=== PATIENT | female | born 1975 | race Caucasian/White ===

== ENCOUNTER 2020-06-27 19:35 | Emergency (ER) | payer BC ==
[~2020-06-27] VITALS: Ht 165.1 cm; Wt 62.6 kg
[~2020-06-27 19:35] MED LIST: HYDR200T81 PO; SERT100T PO
[2020-06-27 20:21] VITALS: BP 119/73
--- NOTE | 2020-06-27 20:28 | NUR ---
PRESENTED TO THE ER FOR C/O HEMATURIA AND DYSURIA X 3 HRS. NO C/O PAIN OR DUSCOMFORT, VSS. AFEBRILE. WILL CONT TO MONITOR ,
--- NOTE | 2020-06-27 20:36 | NUR ---
urine sent to lab
[2020-06-27 20:42] LABS: BILIRUBIN,URINE Negative (NEGATIVE); COLOR,URINE Pink (YELLOW); LEUKOCYTE ESTERASE ,URINE Small (NEGATIVE); NITRITE, URINE Negative (NEGATIVE); PH,URINE 5.5 (5.0-8.0); PROTEIN,URINE 100 mg/dl (NEGATIVE); UGLUCOSE Negative (NEGATIVE); UROBILINOGEN,URINE 0.2 EU/dL (0.2)
[2020-06-27 20:52] LABS: RBC,URINE 51-80 /HPF (0-2); WBC,URINE 21-50 /HPF (0-3)
[2020-06-27 20:53] LABS: BACTERIA,URINE Few /HPF (None Seen); SQUAMOUS EPITHELIAL CELL,UR Few /HPF (None Seen)
[2020-06-27] MEDS ORDERED: PHEN-705 PO (20:56)
[2020-06-27] MEDS ORDERED: SULF1TAB48 PO (20:56)
[2020-06-27] MEDS ORDERED: SULFAMETH/TRIMETH 800/160 MG 1 UDTAB TABLET ONE (21:11)
[2020-06-27] MEDS ORDERED: SULFAMETH/TRIMETH 800/160 MG 1 UDTAB TABLET PO ONE (21:30)
== END 2020-06-27 21:13 | disposition home or self-care (01) ==
LOC: ER 19:38
DX: N39.0 Urinary tract infection, site not specified (principal); F41.9 Anxiety disorder, unspecified; M32.9 Systemic lupus erythematosus, unspecified; Z98.890 Other specified postprocedural states; Z60.2 Problems related to living alone; Z79.899 Other long term (current) drug therapy
CPT/HCPCS: 81001; 84703-TC; 87086-TC